=== PATIENT | male | born 1965 | race Hispanic/Latino ===

== ENCOUNTER 2020-11-17 14:28 | Emergency (ER) | payer MEDICAID, SELFPAY ==
[2020-11-17 14:29] VITALS: BP 122/74; PULSE 53; RESP 16; TEMP 36.3; O2SAT 99; BMI 28.4
--- NOTE | 2020-11-17 15:08 | EDS_ITS ---
HPI History of Present Illness Chief Complaint: Other, Pain/Inj Narrative Narrative: Patient presenting with hematuria. He denies dysuria. He denies fever or chills. He does not have any nausea or vomiting. Initially he stated that he sat on his testicle getting in a car the other day but his testicles do not actually hurt He claims he has no other systemic symptoms. anymore. He states that he states that his testicles do not hurt anymore. Patient is on Jantoven and is from [place]. He is a poor informant because he has a history of stroke and has trouble with word finding. He is accompanied by his family member who is the one that thought he was complaining of testicular pain. Patient has history of stroke, hyperlipidemia, hypertension [facility] Medical History High cholesterol History of CVA (cerebrovascular accident) HTN (hypertension) Home Medications atorvastatin 20 mg PO DAILY 11/17/20 [History Last Taken Unknown] baclofen 10 mg PO DAILY 11/17/20 [History Last Taken Unknown] ferrous sulfate 325 mg PO DAILY 11/17/20 [History Last Taken Unknown] losartan 25 mg PO DAILY 11/17/20 [History Last Taken Unknown] warfarin [Maytoven] 5 mg PO DAILY 11/17/20 [History Last Taken Unknown] Allergy/AdvReac Type Severity Reaction Status Date / Time No Known Allergies Allergy Verified 11/17/20 14:31 Social History Smoking Status: Never smoker ROS ROS ED Constitutional Constitutional ED: Denies fever(s) or subjective Eyes Eyes: Denies blurry vision or change in vision ENT ENT ED: Denies rhinorrhea or sore throat Cardiovascular Cardiovascular: Denies palpitations or racing heartbeat Respiratory/Chest Respiratory/Chest: Denies cough or dyspnea Gastrointestinal Gastrointestinal: Denies abdominal pain, diarrhea, nausea or vomiting Genitourinary Genitourinary ED: Reports hematuria; Denies urinary frequency Musculoskeletal Musculoskeletal: Denies arthralgias or myalgias Integumentary Denies abscess or rash Neurologic Neurologic: Denies headache(s), paresthesias or weakness Psychiatric Psychiatric: Denies anxiety or depression EXAM Physical Exam Const Vital Signs: 11/17/20 14:29 Temperature 97.3 F L Temperature Source Temporal Pulse Rate 53 L Respiratory Rate 16 Blood Pressure 122/74 H Blood Pressure Mean 90 Pulse Ox 99 Oxygen Delivery Method Room Air Positive well nourished General Appearance ED: NAD MESSI Reports normocephalic atraumatic Throat: other Eyes PERRL and EOMs intact bilaterally Resp normal respiratory effort and clear to auscultation bilaterally Cardio regular rhythm Rate: regular rate GI normal to inspection, nondistended, normoactive bowel sounds Narrative: Patient has no testicular pain. Cremasteric reflex is intact bilaterally. Patient is circumcised and there appears to be no abnormality of the penis. There is no urethral discharge. There is no discoloration of the testicles. Back/Spine normal to inspection General Back: Negative for CVA tenderness Neuro oriented x3 Sensorium / Orientation: alert Psych mental status grossly normal and thought process normal Skin no rashes or lesions noted and no wounds MDM MDM MDM Narrative Medical decision making narrative: Patient presenting with painless hematuria. He is from out of town. He is on Coumadin and his INR is 3.4 which is slightly high. She does have occult blood in his stool as well as 100 RBCs seen. He is not having any pain in his back or his abdomen. It is unclear what the source of his hematuria is. He is counseled that when he returns home he should follow-up with urology. But does not appear to be consistent with UTI it is not having dysuria so we will withhold antibiotics. I will send urine for culture. Impression: 1. Hematuria Lab Data Attestation: I reviewed the patient's lab results. Labs: Laboratory Results - last 24 hr 11/17/20 11/17/20 15:30 15:38 PT 33.3 H INR 3.4 Urine Color Yellow Urine Clarity Cloudy Urine pH 8.0 Ur Specific [place] 1.015 Urine Protein 30 H Urine Glucose (UA) Normal Urine Ketones Negative Urine Occult Blood 250 H Urine Nitrite Negative Urine Bilirubin Negative Urine Urobilinogen Normal Ur Leukocyte Esterase 25 H Urine RBC > 100 SEEN Urine WBC 0 SEEN Ur Squamous Epith Cells 0 SEEN Urine Bacteria 1+ Urine Mucus 0 SEEN Discharge Plan Triage Chief Complaint: Other, Pain/Inj ED Provider: Soto Willis Dx/Rx/DC Orders Instructions: ED Hematuria Prescriptions: No Action atorvastatin 20 mg Tablet 20 mg PO DAILY RF: 0 baclofen 10 mg Tablet 10 mg PO DAILY RF: 0 ferrous sulfate 325 mg (65 mg iron) Tablet 325 mg PO DAILY RF: 0 warfarin [Jantoven] 5 mg Tablet 5 mg PO DAILY RF: 0 losartan 25 mg Tablet 25 mg PO DAILY RF: 0 Primary Care Provider: Care Physician,No Primary Referrals: Care Physician,No Primary [Primary Care Provider] - Disposition Disposition: Home, Self Care
[2020-11-17 15:44] LABS: Mucous, Urine 0 SEEN /hpf (<or=2+); Squamous Epithelial Cells - UA 0 SEEN /hpf (0-5); White Blood Cells 0 SEEN /hpf (0-5)
[2020-11-17 15:57] LABS: International Normalized Ratio 3.4; Prothrombin Time (Protime)PT. 33.3 SECONDS (11.7-14.9)
[2020-11-17 16:16] LABS: Color, Urine Yellow (Yellow); Glucose, Dipstick Normal (Normal); Ketone-Dipstick Negative (Negative); Leukocyte Esterase-Dipstick 25 /ul (Negative); Nitrite-Dipstick Negative (Negative); Occult Blood-Urine 250 /ul (Negative); Protein-Dipstick 30 mg/dl (Negative); Specific Gravity, Urine 1.015 (1.002-1.030); Urine Bilirubin Dipstick Negative (Negative); Urine Clarity Cloudy (Clear); Urine Urobilinogen Normal (Normal)
[2020-11-17 16:25] LABS: Bacteria 1+ /hpf (None Seen); Red Blood Cells-Urine > 100 SEEN /hpf (0-5)
== END 2020-11-17 17:13 | disposition home or self-care (01) ==
PROVIDERS: Emergency Provider Student in an Organized Health Care Education/Training Program
DX: R31.9 Hematuria, unspecified (principal); E78.00 Pure hypercholesterolemia, unspecified; E78.5 Hyperlipidemia, unspecified; I10 Essential (primary) hypertension; Z79.01 Long term (current) use of anticoagulants; Z79.899 Other long term (current) drug therapy; Z86.73 Personal history of transient ischemic attack (TIA), and cerebral infarction without residual deficits
CPT/HCPCS: 36415; 81001; 85610; 87086; 99282

== ENCOUNTER 2021-02-05 12:17 | Emergency (ER) | payer MEDICAID, SELFPAY ==
[2021-02-05] VITALS (8 sets, daily range): BP systolic 112–137; BP diastolic 69–87; PULSE 54–89; RESP 13–22; TEMP 36.6; O2SAT 97–100; BMI 29.0
--- NOTE | 2021-02-05 12:49 | EDS_ITS ---
HPI History of Present Illness Chief Complaint: Upper Extremity Injury Detail of Chief Complaint: Injury to left shoulder with concern for dislocation Informant: patient Narrative Narrative: Patient presents to the emergency department complaint of pain in his left shoulder. Patient states that he was going to fall so he reached to grab onto somebody and injured his left shoulder. Patient denies actually falling. He describes pain with range of motion at the shoulder. He has not had prior shoulder dislocations. Patient denies any other injuries. PFSH PFS Medical History High cholesterol History of CVA (cerebrovascular accident) HTN (hypertension) Home Medications atorvastatin 20 mg PO DAILY 11/17/20 [History Last Taken Unknown] baclofen 10 mg PO DAILY 11/17/20 [History Last Taken Unknown] ferrous sulfate 325 mg PO DAILY 11/17/20 [History Last Taken Unknown] losartan 25 mg PO DAILY 11/17/20 [History Last Taken Unknown] warfarin [Jantoven] 5 mg PO DAILY 11/17/20 [History Last Taken Unknown] hydrocodone-acetaminophen 1 tab PO Q4H PRN PRN 2 Days #10 tablet 02/05/21 [Rx Last Taken Unknown] Allergy/AdvReac Type Severity Reaction Status Date / Time No Known Allergies Allergy Verified 02/05/21 12:19 Social History Smoking Status: Never smoker ROS ROS ED Constitutional Constitutional ED: Reports systems reviewed and no addt'l complaints, except as documented; Denies body ache(s), change in weight or chills Eyes Eyes: Denies acute decrease in peripheral vision, change in vision, double vision or loss of vision ENT ENT ED: Reports none; Denies ear pain, lip swelling, loss taste/smell, neck pain, otalgia or sore throat Cardiovascular Cardiovascular: Reports none; Denies abdominal pain, chest pain with activity, leg edema, lightheadedness, palpitations, rapid heart rate or syncope Respiratory/Chest Respiratory/Chest: Reports none; Denies change in mental status, dry cough, dyspnea, hemoptysis, shortness of breath at rest or shortness of breath with e xertion Gastrointestinal Gastrointestinal: Reports none; Denies abdominal pain, change in stool charact er, diarrhea, hematemesis, hematochezia, melena, rectal bleeding or vomiting Genitourinary Genitourinary ED: Reports none; Denies abdominal discomfort, anuria, dysuria, genital pain or polyuria Musculoskeletal Musculoskeletal: Reports none and other Details: Left shoulder pain ; Denies arthralgias, back pain, difficulty walking, extremity pain, muscle weakness or myalgias Integumentary Reports none; Denies abscess or rash Neurologic Neurologic: Reports none; Denies abnormal gait, confusion, focal weakness, frequent falls, headache(s), loss of vision, numbness, paresthesias, radicular pain, vertigo or weakness Psychiatric Psychiatric: Reports systems reviewed and no addt'l complaints, except as documented and none; Denies behavioral changes, confusion, difficulty concentrating, hallucinations, suicidal ideation, tactile hallucinations or visual hallucinations Endocrine Endocrinology: Denies none, cold intolerance, excessive sweating, fatigue or heat intolerance Hematologic/Lymphatic Hematologic/Lymphatic: Reports none; Denies anemia, easy bleeding or easy bruising Allergic/Immunologic Allergic/Immunologic ED: Denies as per HPI, none, lip swelling, mouth swelling, throat swelling, tongue swelling or hives EXAM Physical Exam Const Vital Signs: 02/05/21 12:17 Temperature 97.8 F Temperature Source Temporal Pulse Rate 54 L Respiratory Rate 18 Blood Pressure 122/69 H Blood Pressure Mean 86 Pulse Ox 100 Oxygen Delivery Method Room Air Positive well nourished and well developed General Appearance ED: well developed and NAD HEENT Reports TM's clear and moist mucous membranes normocephalic and atraumatic; Negative for trauma or tenderness Tympanic Membrane ED: Yes TM's clear Eyes PERRL and EOMs intact bilaterally General Eye ED: Negative for pale conjunctiva or scleral icterus Neck no lymphadenopathy, supple and no JVD General: Negative for tenderness Chest Wall inspection of chest normal and palpation of chest normal Chest: Negative for tenderness Resp normal respiratory effort and clear to auscultation bilaterally Effort and Inspection: Negative for respiratory distress or pain with movement Auscultation: Negative for rhonchi, wheezes or diminished lung sounds Cardio regular rate, regular rhythm, S1 normal heart sound, S2 normal heart sound and no murmurs Peripheral Pulses: pulses 2+ throughout GI normal to inspection, nondistended, normoactive bowel sounds, soft to palpation, non-tender, non-distended and no masses Back/Spine no CVA tenderness and no thoracic nor lumbar tenderness Extremity Negative for full ROM Extremity Narrative: Evaluation of the left shoulder does reveal an obvious sulcus sign. Patient has limited range of motion secondary to pain. Neurovascular intact distally. Tenderness at the glenohumeral joint. General Extremety ED: Negative for edema General Extremity: Negative for edema Neuro oriented x3, CN's II-XII intact bilaterally, no sensory deficits noted and gait normal Sensorium / Orientation: awake, alert, oriented to person, oriented to place and oriented to time Motor Exam: strength 5/5 throughout and strength abnormal Psych mental status grossly normal Skin no rashes or lesions noted and no wounds MDM MDM Radiography Diagnostic Testin view x-rays of left shoulder obtained initially interpret ed by myself as inferior and anterior dislocation of the left glenohumeral joint. Radiology was in agreement. Post reduction x-rays obtained 2 views interpreted by myself is good reduction. Official report pending from radiology. Procedures Other Procedures Procedure(s): Procedural sedation for closed reduction of left shoulder. Patient was given a total of 160 mg of propofol. He tolerated well. I was able to reduce the shoulder easily with traction. A sling was applied. Sedation time of 15 minutes. Discharge Plan Triage Chief Complaint: Upper Extremity Injury ED Provider: Denise Ray Dx/Rx/DC Orders Clinical Impression: Anterior dislocation of left shoulder Instructions: ED Dislocation: Shoulder (Reduced) Prescriptions: New hydrocodone-acetaminophen [hydrocodone-acetaminophen] 1 TABLET tablet 1 tab PO Q4H PRN PRN (Reason: Pain) 2 Days Qty: 10 RF: 0 No Action atorvastatin 20 mg Tablet 20 mg PO DAILY RF: 0 baclofen 10 mg Tablet 10 mg PO DAILY RF: 0 ferrous sulfate 325 mg (65 mg iron) Tablet 325 mg PO DAILY RF: 0 warfarin [Jantoven] 5 mg Tablet 5 mg PO DAILY RF: 0 losartan 25 mg Tablet 25 mg PO DAILY RF: 0 Primary Care Provider: Care Physician,No Primary Referrals: Carlos Barrera MD [STAFF PHYSICIAN] - 3-5 Days Care Physician,No Primary [Primary Care Provider] - Disposition Disposition: Home, Self Care
[2021-02-05] MEDS: Morphine 4 MG/ML Syringe IV (13:03)
[2021-02-05] MEDS: Ondansetron 4 MG/2 ML Vial IV (13:03)
--- NOTE | 2021-02-05 13:15 | RAD_ITS ---
STUDY: X-RAY - LEFT SHOULDER REASON FOR EXAM: Male, 55 years old. Shoulder pain following a fall. TECHNIQUE: 2 view(s) of the shoulder. COMPARISON: None. FINDINGS: There is evidence of anterior inferior dislocation of the left glenohumeral joint. Normal acromioclavicular joint. Normal acromion. Normal humeral head and visualized proximal humerus. The soft tissue structures are unremarkable. Normal visualized pulmonary apex. RAD/Shoulder min 2 Views IMPRESSION: Anterior inferior dislocation of the left glenohumeral joint. Electronically Signed: Cody Bales MD at 13:32 EDT , Service support ,
[2021-02-05] MEDS: Propofol 200 MG/20 ML Vial IV BOLUS (14:13)
--- NOTE | 2021-02-05 14:25 | RAD_ITS ---
STUDY: X-RAY - LEFT SHOULDER REASON FOR EXAM: Post reduction of anterior left shoulder dislocation. TECHNIQUE: 2 view(s) of the shoulder. COMPARISON: Radiographs obtained earlier today. FINDINGS: There is reduction of the anterior dislocation. There is mild acromioclavicular arthrosis. Normal acromion. There is no demonstrated humeral head fracture. There is narrowing of the acromiohumeral distance. Normal visualized pulmonary apex. RAD/Shoulder min 2 Views IMPRESSION: Reduction of the anterior dislocation. Narrowing of acromiohumeral distance suggestive of rotator cuff pathology. Electronically Signed: Víctor Peguero MD at 14:52 EDT Tel , Service support ,
== END 2021-02-05 15:15 | disposition home or self-care (01) ==
PROVIDERS: Emergency Provider Emergency Medicine
DX: S43.015A Anterior dislocation of left humerus, initial encounter (principal); W19.XXXA Unspecified fall, initial encounter; Y93.9 Activity, unspecified; Y92.89 Other specified places as the place of occurrence of the external cause; Y99.8 Other external cause status; E78.00 Pure hypercholesterolemia, unspecified; I10 Essential (primary) hypertension; Z86.73 Personal history of transient ischemic attack (TIA), and cerebral infarction without residual deficits
CPT/HCPCS: 23650; 73030; 96374; 96375; 99152; 99284; J7030; A4216; J2405

== ENCOUNTER → 2021-02-24 14:01 | Outpatient (CLI) | payer MEDICAID, SELFPAY ==
--- NOTE | 2021-02-24 14:30 | MRI_ITS ---
STUDY: MRI LEFT SHOULDER REASON FOR EXAM: Male, 55 years old. LEFT shoulder dislocation TECHNIQUE: Standardized fat and water weighted pulse sequences were obtained in all 3 orthogonal planes. COMPARISON: Left shoulder x-ray dated February 05, 2021 FINDINGS: There are large full-thickness tears of the infraspinatus and supraspinatus tendons. The supra spinatus tendon is retracted 5.29 cm proximal to the greater tuberosity. The humeral head is high riding abutting the undersurface of the acromion. A small concave defect with marrow edema is present in the posterior lateral and proximal aspect of the humeral head compatible with a Hill-Sachs impaction fracture. A small glenohumeral joint effusion is also present. Normal subscapularis tendon. Normal teres minor tendon. There is mild muscular atrophy of the supraspinatus muscle. There is moderate muscular atrophy of the infraspinatus muscle. Normal subscapularis muscle. Normal teres minor muscle. Normal glenohumeral articulation. Normal biceps labral complex. Normal intracapsular long biceps tendon. Normal labrum. Normal capsulo- ligamentous complex. Normal rotator interval. Normal acromioclavicular articulation. There is a Type II morphology (curved), with a neutral orientation. There is fluid distention of the subacromial-subdeltoid bursa, which communicates with the glenohumeral joint, through a rotator cuff tear. Normal visualized coracohumeral and coracoacromial ligaments. Normal quadrilateral space. Normal axillary space. Normal deltoid muscle. Normal trapezius muscle. MRI/Upper Ext Joint Only(Routine) IMPRESSION: 1. Large full-thickness tears of the supraspinatus and infraspinatus tendons. 2. Acute mild impaction fracture of the posterior lateral aspect of the humeral head compatible with a Hill-Sachs deformity Electronically Signed: Phill Roland MD at 21:24 EDT , Service support ,
== END ==
PROVIDERS: Referring Provider Specialist; Visit Provider Specialist
DX: S43.085A Other dislocation of left shoulder joint, initial encounter (principal)
CPT/HCPCS: 73221

== ENCOUNTER 2021-04-16 13:30 | Outpatient (RCR) | payer MEDICAID, SELFPAY ==
--- NOTE | 2021-03-26 16:22 | HP.PTEVAL ---
Patient's Visit Information KAMILAH MARCELO is a 55 year old M referred to Physical Therapy by SATHYA DORSEY with a diagnosis of CVA. Date of Evaluation: 03/26/21 Physical Therapist: Saskia Bower DPT - Visit Plan Frequency: 2x /Week Duration: 4 Weeks Plan: CVA- right franca- focus on LE and core strength/stabilization, proprioception and muscular endurance with functional mobility and gait. HEP Given IE: Standing HR, TR, hip abd, hip extn, hip flexion - Subjective Patient reports that he had a stroke 3 years ago. He has been using a cane on/off since then. He has been moving around since and has finally stayed here. Lives in a single story home- staying with his daughter- a few stairs to enter. No problems to enter. He is able to perform ADL's without assistance. No pain in his limbs. They are worried about his balance and use of his right leg. He has an AFO but does not wear it. Has not had any falls to report. He wants to be able to run and get outside to get back to normal. 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 PMHx/Meds: see list in chart. - Objective Posture: FH, RS can correct but does not maintain. Gait: antalgic- step to pattern with cane on the left LE- circumduction of the right LE- poor DF in swing phase. Stairs: asc/desc 8 recip with single hand rail- circumduction to advance LE. HR: able with 25% on right. TR: visible but unable to lift off floor. ROM: WFL in all planes with the exception of ankle DF- neutral- increased tone. Strength: Core: fair minus, Left LE: 5/5 throughout Right: Ankle: trace, Knee: 4/5, Hip: 4/5 - Balance/Special Test Scores Functional Gait Assessment Score: 9 % Disability: 70.0000 Lower Extremity Functional Score: 29 TUG Test Time Seconds: 19.20 30 Second Chair Rise Test Seconds: 11 - Goals Goal 1:: Patient will be I with HEP and progression Goal Time Frame: 4-6 Weeks Goal 2:: Patient will ambulate >300 feet with a normalized gait pattern with Goal Time Frame: 4-6 Weeks Goal 3:: Patient will increase number of sit to stands to 17 Goal Time Frame: 4-6 Weeks Goal 4:: Patient will improve TUG test to below 10 sec Goal Time Frame: 4-6 Weeks - Rehabilitation Potential Physical Therapy Diagnosis: Patient presents with hypomobility- he has decreased LE and core strength, flex, proprioception and muscular endurance leading to poor posture, abnormal gait and decreased ability to perform ADL's Rehabilitation Potential: Fair - Anticipated Interventions Patient/Client Instruction: Educate patient on: Benefits of Fitness Program Therapeutic Exercise to Include: Strength training, Endurance training, Balance training, Agility training, Body mechanics, Postural training, Flexibilty training, Gait and locomotor training, Passive ROM, Active ROM, Dynamic Lumbar Stabilization, Scapular Strength/Stabilization For the Purpose of:: To improve muscle performance and motor function Functional Training to Include: ADL Training, Gait training Thank you for the opportunity to evaluate your patient. For Medicare and Medicare HMO plans, please review the plan of care and approve it. It will need to be FAXED BACK to us at [phone] for Medicare purposes. For Medicare only, by signing this I certify the plan of care. Please let me know if there are questions or concerns regarding this plan of care. Physician Signature: Date:
--- NOTE | 2021-05-28 15:05 | HP.PT.NRP ---
KAMILAH MARCELO was seen in my office for initial evaluation on 03/26/21. The following Plan of Care was established for this patient: Initial Frequency: 2x /Week Initial Duration: 4 Weeks Patient/Client Instruction: Educate patient on: Benefits of Fitness Program Therapeutic Exercise to Include: Strength training, Endurance training, Balance training, Agility training, Body mechanics, Postural training, Flexibilty training, Gait and locomotor training, Passive ROM, Active ROM, Dynamic Lumbar Stabilization, Scapular Strength/Stabilization For the Purpose of:: To improve muscle performance and motor function Functional Training to Include: ADL Training, Gait training This patient was last seen in our office . Pertinent comments regarding their Physical therapy will appear below: Patient has attended PT in over 30 days- appropriate to be d/c from PT- follow up with MD for further evaluation. At this point I will be discontinuing this patient from physical therapy. I would be happy to see this patient again in the future if found appropriate by the physician. Thank you! MARY ChouT Balance/Gait/Functional tests - Balance/Special Test Scores Functional Gait Assessment Score: 9 % Disability: 70.0000 Lower Extremity Functional Score: 29 TUG Test Time Seconds: 19.20 Tug Test: <20 sec.=mostly independent 30 Second Chair Rise Test Seconds: 11
== END 2021-04-16 19:00 | disposition home or self-care (01) ==
LOC: PT 13:30
DX: G81.13 Spastic hemiplegia affecting right nondominant side (principal)
CPT/HCPCS: 97110; 97162